=== PATIENT | female | born 1975 | race Caucasian/White ===

== ENCOUNTER 2020-01-21 01:05 | Emergency (ER) | payer BC, OTHER ==
[2020-01-21] MEDS ORDERED: METHYLPREDNISOLONE 125 MG INJ ONE (02:13)
[2020-01-21] MEDS ORDERED: NA CHLORIDE 0.9% 2,000 ML ONE (02:14)
[2020-01-21] MEDS ORDERED: ONDANSETRON 4 MG/2 ML VIAL ONE (02:14)
[2020-01-21] MEDS ORDERED: CLINDAMYCIN 900MG/D5W 900 MG/50 ML IVPB IV ONE (02:14)
[2020-01-21] MEDS ORDERED: MORPHINE 4 MG/ML SYR ONE (02:14)
[2020-01-21 02:41] LABS: Absolute Lymphocytes (CBC) 2.6 K/uL (0.7-4.9); Basophils % 0.7 % (0-1.3); Hematocrit 37.2 % (36.0-45.0); Lymphocytes % 13.6 % (15.3-44.8); MPV 9.2 fL (7.6-11.3); RBC Red Blood Cell Count 4.14 M/uL (3.86-4.86)
--- NOTE | 2020-01-21 04:19 | ER ---
Nurse's Notes [facility] Name: Kyung Rivas Age: 44 yrs Sex: Female : 1975 Arrival Date: 01/21/2020 Time: 01:10 Bed 18 Private MD: Diagnosis: Abscess tooth. Cellulitis left jaw and neck Presentation: 01/20 01:27 Chief complaint: Patient states: i have toothache since Sunday. I called my dentist mg2 yesterday and he prescribed me with clindamycin and i took the first dose today. i took tylenol #3 \T\ 0 but it is not helping. my neck is swollen now. Coronavirus screen: Client denies travel out of the [place] in the last 14 days. At this time, the client does not indicate any symptoms associated with coronavirus-19. Ebola Screen: No symptoms or risks identified at this time. Initial Sepsis Screen: Does the patient meet any 2 criteria? No. Patient's initial sepsis screen is negative. Does the patient have a suspected source of infection? No. Patient's initial sepsis screen is negative. Risk Assessment: Do you want to hurt yourself or someone else? Patient reports no desire to harm self or others. Onset of symptoms was December 2019. 01:27 Method Of Arrival: Ambulatory mg2 01:27 Acuity: NICOLA 3 mg2 Triage Assessment: 01:38 General: Appears comfortable, Behavior is calm, cooperative. Pain: Complains of pain in mg2 mouth. EENT: Reports pain in mouth and left jaw when swallowing. Neuro: Level of Consciousness is awake, alert, obeys commands, Oriented to person, place, time, situation. Cardiovascular: Capillary refill < 3 seconds Patient's skin is warm and dry. Respiratory: Airway is patent Respiratory effort is even, unlabored, Respiratory pattern is regular, symmetrical. GI: No signs and/or symptoms were reported involving the gastrointestinal system. : No signs and/or symptoms were reported regarding the genitourinary system. Derm: Skin is intact, is healthy with good turgor, Skin is pink, warm \T\ dry. normal. Musculoskeletal: Circulation, motion, and sensation intact. Capillary refill < 3 seconds. 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 - Social history:: Smoking status: Patient reports the use of cigarette tobacco products, smokes one-half pack cigarettes per day, Patient/guardian denies using alcohol, street drugs, IV drugs. Screenin:39 Abuse screen: Denies threats or abuse. Denies injuries from another. Nutritional mg2 screening: No deficits noted. Tuberculosis screening: No symptoms or risk factors identified. Fall Risk None identified. Assessment: 01:39 General: see triage notes. mg2 02:35 Reassessment: patient sent to CT scan via stretcher. mg2 03:57 Reassessment: Patient appears in no apparent distress at this time. Patient states mg2 feeling better. 04:23 Reassessment: patient for dc already. provider already spoke to the patient about mg2 discharge and he wants to let the patient stay for an hour because she will be driving home and she had narcotic in ED. Vital Signs: 01:27 BP 148 / 93; Pulse 92; Resp 18; Temp 98.5; Pulse Ox 100% on R/A; Weight 63.5 kg; Height mg2 5 ft. 9 in. (175.26 cm); Pain 10/10; 02:47 BP 139 / 81; Pulse 90; Resp 18; Pulse Ox 100% on R/A; Pain 4/10; mg2 03:58 BP 106 / 69; Pulse 74; Resp 18; Pulse Ox 98% on R/A; mg2 01:27 Body Mass Index 20.67 (63.50 kg, 175.26 cm) mg2 ED Course: 01:10 Patient arrived in ED. ag3 01:21 Oj Schroeder MD is Attending Physician. pkl 01:27 Artemio Reilly, ARACELI is Primary Nurse. mg2 01:38 Triage completed. mg2 01:38 Arm band placed on. mg2 01:40 Patient has correct armband on for positive identification. mg2 01:40 No provider procedures requiring assistance completed. mg2 02:00 Inserted saline lock: 20 gauge in right antecubital area, using aseptic technique. mg2 Blood collected. 02:46 CT Soft Tissue Neck W/contr In Process Unspecified. EDMS 04:54 IV discontinued, intact, bleeding controlled, No redness/swelling at site. Pressure mg2 dressing applied. Administered Medications: 02:13 Drug: Zofran (Ondansetron) 4 mg Route: IVP; Site: right antecubital; mg2 03:57 Follow up: Response: No adverse reaction mg2 02:14 Drug: NS 0.9% 1000 ml Route: IV; Rate: 1000 ml; Site: right antecubital; mg2 03:57 Follow up: Response: No adverse reaction; IV Status: Completed infusion; IV Intake: mg2 1000ml 02:14 Drug: Clindamycin 900 mg Route: IVPB; Infused Over: 30 mins; Site: right antecubital; mg2 03:57 Follow up: Response: No adverse reaction; IV Status: Completed infusion mg2 02:14 Drug: SOLU-Medrol 125 mg Route: IVP; Site: right antecubital; mg2 03:57 Follow up: Response: No adverse reaction mg2 02:14 Drug: morphine 4 mg Route: IVP; Site: right antecubital; mg2 03:56 Follow up: Response: No adverse reaction mg2 03:22 Drug: NS 0.9% 1000 ml Route: IV; Rate: 125 ml/hr; Site: right antecubital; mg2 Intake: 03:57 IV: 1000ml; Total: 1000ml. mg2 Outcome: 04:18 Discharge ordered by . pratik 04:30 Discharged to home ambulatory. mg2 04:30 Condition: stable 04:30 Discharge instructions given to patient, Instructed on discharge instructions, follow up and referral plans. Demonstrated understanding of instructions, follow-up care. 04:54 Patient left the ED. mg2 Signatures: Dispatcher [employer] EDOj Morelos MD MD pkArtemio Espinoza RN RN mg2 aMria Elena Kearns ag3 Corrections: (The following items were deleted from the chart) 04:31 04:23 Reassessment: patient for dc already. provider already spoke to the patient about mg2 discharge. mg2
--- NOTE | 2020-01-21 04:19 | EDPHYS ---
Physician Documentation [facility] [address] Name: Kyung Rivas Age: 44 yrs Sex: Female : 1975 Arrival Date: 01/21/2020 Time: 01:10 Bed 18 Private MD: ED Physician Oj Schroeder HPI: 01/20 01:59 This 44 yrs old Female presents to ER via Ambulatory with complaints of pkl Toothache. 01:59 The patient presents with pain, swelling. The problem is located in the left jaw. pkl Onset: The symptoms/episode began/occurred 2 day(s) ago. Patient started having toothache 2 days ago. Yesterday her dentist prescribed her Clindamycin and Tylenol # 3. Tonight she said alexander toothache is worse and her left jaw and neck is swollen. She also complained of difficulty swallowing. 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 - Social history:: Smoking status: Patient reports the use of cigarette tobacco products, smokes one-half pack cigarettes per day, Patient/guardian denies using alcohol, street drugs, IV drugs. ROS: 01:59 Eyes: Negative for injury, pain, redness, and discharge. pkl 01:59 ENT: Positive for dental pain, of the left jaw. 01:59 Neck: Positive for swelling. 01:59 Cardiovascular: Negative for chest pain. 01:59 Respiratory: Negative for cough, shortness of breath. 01:59 Abdomen/GI: Negative for abdominal pain, nausea, vomiting, and diarrhea. 01:59 Back: Negative for acute changes. 01:59 : Negative for urinary symptoms. 01:59 MS/extremity: Negative for acute changes, rash. 01:59 Skin: Negative for rash. 01:59 Neuro: Negative for altered mental status, loss of consciousness. Exam: 01:59 Eyes: Pupils equal round and reactive to light, extra-ocular motions intact. Lids and pkl lashes normal. Conjunctiva and sclera are non-icteric and not injected. Cornea within normal limits. Periorbital areas with no swelling, redness, or edema. 01:59 Head/face: Noted is swelling, that is mild, of the left jaw. 01:59 ENT: Dental exam: abscess, that is moderate, specifically in the lower left first molar (#19). 01:59 Neck: External neck: swelling, that is mild, of the left side neck, . 01:59 Chest/axilla: Exam negative for acute changes. 01:59 Cardiovascular: Rate: normal, Rhythm: regular. 01:59 Respiratory: the patient does not display signs of respiratory distress, Respirations: normal, Breath sounds: are clear throughout. 01:59 Abdomen/GI: Bowel sounds: normal, Palpation: abdomen is soft and non-tender, in all quadrants. 01:59 Back: Exam negative for acute changes. 01:59 : Exam negative for acute changes. 01:59 Musculoskeletal/extremity: Exam is negative for acute changes. 01:59 Skin: Exam negative for rash. 01:59 Neuro: Orientation: is normal, Mentation: is normal, Cranial nerves: grossly normal, Motor: is normal. Vital Signs: 01:27 BP 148 / 93; Pulse 92; Resp 18; Temp 98.5; Pulse Ox 100% on R/A; Weight 63.5 kg; Height mg2 5 ft. 9 in. (175.26 cm); Pain 10/10; 02:47 BP 139 / 81; Pulse 90; Resp 18; Pulse Ox 100% on R/A; Pain 4/10; mg2 03:58 BP 106 / 69; Pulse 74; Resp 18; Pulse Ox 98% on R/A; mg2 01:27 Body Mass Index 20.67 (63.50 kg, 175.26 cm) mg2 MDM: 01:21 Patient medically screened. pkl 04:14 Data reviewed: vital signs, nurses notes, lab test result(s), radiologic studies, CT pkl scan. ED course: Patient said she is feeling much better. Discussed lab and CT scan results with patients. Advised patient patient to continue Clindamycin and Tylenol # 3 and follow with her dentist in 2 to 3 days. To return if necessary. Patient understood instructions. 01/20 01:49 Order name: CBC with Diff; Complete Time: 03:17 pkl 01/20 01:49 Order name: Chem 7; Complete Time: 02:52 pkl 01/20 01:49 Order name: Creatinine, Serum pkl 01/20 01:54 Order name: CT Soft Tissue Neck W/contr pkl Administered Medications: 02:13 Drug: Zofran (Ondansetron) 4 mg Route: IVP; Site: right antecubital; mg2 03:57 Follow up: Response: No adverse reaction mg2 02:14 Drug: NS 0.9% 1000 ml Route: IV; Rate: 1000 ml; Site: right antecubital; mg2 03:57 Follow up: Response: No adverse reaction; IV Status: Completed infusion; IV Intake: mg2 1000ml 02:14 Drug: Clindamycin 900 mg Route: IVPB; Infused Over: 30 mins; Site: right antecubital; mg2 03:57 Follow up: Response: No adverse reaction; IV Status: Completed infusion mg2 02:14 Drug: SOLU-Medrol 125 mg Route: IVP; Site: right antecubital; mg2 03:57 Follow up: Response: No adverse reaction mg2 02:14 Drug: morphine 4 mg Route: IVP; Site: right antecubital; mg2 03:56 Follow up: Response: No adverse reaction mg2 03:22 Drug: NS 0.9% 1000 ml Route: IV; Rate: 125 ml/hr; Site: right antecubital; mg2 Disposition: 01/21/20 04:18 Discharged to Home. Impression: Abscess tooth. Cellulitis left jaw and neck. - Condition is Stable. - Medication Reconciliation Form, Thank You Letter, Antibiotic Education, Prescription Opioid Use form. - Follow up: Private Physician; When: 2 - 3 days; Reason: Re-evaluation by your physician. - Problem is new. - Symptoms have improved. Signatures: Dispatcher [employer] EDMS Oj Schroeder MD MD pkl Artemio Reilly RN RN mg2 Corrections: (The following items were deleted from the chart) 04:54 04:18 01/21/2020 04:18 Discharged to Home. Impression: Abscess tooth. Cellulitis left mg2 jaw and neck. Condition is Stable. Forms are Medication Reconciliation Form, Thank You Letter, Antibiotic Education, Prescription Opioid Use. Follow up: Private Physician; When: 2 - 3 days; Reason: Re-evaluation by your physician. Problem is new. Symptoms have improved. pkl
[2020-01-21 05:05] VITALS: TEMP 98.5
[2020-01-21 05:17] VITALS: BP 106/69; O2SAT 98
--- NOTE | 2020-01-21 10:23 | RAD REPORT ---
EXAM DESCRIPTION: CT NECK WITH CONTRAST CLINICAL HISTORY: Tooth abscess, swelling neck COMPARISON: None. TECHNIQUE: Axial 3.[address] imaging of the neck soft tissues performed. Reformatted coronal and sagit jhony images obtained. Intravenous contrast utilized. Automated exposure control, adjustment of the mA and/or kV according to patient size, or use of itera tive reconstruction was performed. FINDINGS: There is a periapical lucency around the root apex of the posterior inferior left molar. T here is erosion of the medial cortex of the left mandible body adjacent to the root apices. There is adjacent left submandibular subcutaneous edema. There is asymmetric enlargement of the left submandib ular gland. There are several enlarged left submandibular level II lymph nodes. The largest is 2.9 x 1.3 x 1.6 cm. There is mild left parapharyngeal six cutaneous edema. There is no fluid collection to suggest an abscess. No other periodontal abscess is evident. Normal appearance of the nasopharynx and oropharynx. Normal epiglottis. Prevertebral soft tissues antonina ear normal. The carotid and jugular vessels are well-opacified. Vertebral arteries are unremarkable. Unremarkable thyroid. Cervical spine alignment appears normal. No subluxation. No spinal canal or for aminal stenosis. The included lung apices are clear. There is minimal biapical pleural thickening. IMPRESSION: 1. Posterior inferior left molar periodontal abscess with adjacent left parapharyngeal edema and superficial cellulitis with left level II lymphadenopathy. There is associated left subman dibular sialoadenitis. No drainable abscess. Electronically signed by: Safia Carnes DO 01/21/2020 3:07 AM CDT Due to temporary technical issues with the PACS/Fluency reporting system, reports are being signed by the in house radiologist without review as a courtesy to ensure prompt reporting. The interpreting r adiologist is fully responsible for the content of the report.
== END 2020-01-21 04:54 | disposition home or self-care (01) ==
LOC: ER 01:05
DX: K04.7 Periapical abscess without sinus (principal); L03.211 Cellulitis of face; L03.221 Cellulitis of neck; F17.210 Nicotine dependence, cigarettes, uncomplicated
CPT/HCPCS: 96365; 85025; 80048; 36415; 82565; 70491; 96375; 99284; 96366; Q9967; J7030; J2930; J2405